=== PATIENT | female | born 1955 | race Caucasian/White ===

== ENCOUNTER 2022-06-25 11:54 | Outpatient (CLI) | payer MEDICARE | END 2022-06-25 11:55 | disposition home or self-care (01) | LOC: BICMAMMO 11:54 | PROVIDERS: ATTEND Registered Nurse Community Health | DX: Z12.31 Encounter for screening mammogram for malignant neoplasm of breast (principal) | CPT/HCPCS: 77063; 77067 ==

== ENCOUNTER 2022-10-03 12:08 | Outpatient (CLI) | payer MEDICARE | END 2022-10-03 12:09 | disposition home or self-care (01) | LOC: BICULT 12:08 | PROVIDERS: ATTEND Internal Medicine Nephrology | DX: N18.30 Chronic kidney disease, stage 3 unspecified (principal); N28.1 Cyst of kidney, acquired; N28.9 Disorder of kidney and ureter, unspecified | CPT/HCPCS: 76770 ==

== ENCOUNTER 2023-05-11 21:36 | Inpatient (IN) | payer MEDICARE ==
[2023-05-12 02:43] VITALS: BMI 46.7
[2023-05-12] MEDS ORDERED: Ipratropium/Albuterol 3 ML NEB NEB PRN (04:31)
[2023-05-12] MEDS ORDERED: Ondansetron ODT 4 MG TAB PO PRN (04:32)
[2023-05-12] MEDS ORDERED: Ondansetron PF 4 MG/2 ML Vial IVP PRN (04:32)
[2023-05-12] MEDS ORDERED: Dextrose 5% in Water 1,000 ML IV PRN (04:32)
[2023-05-12] MEDS ORDERED: Acetaminophen 650 MG Suppository PR PRN (04:32)
[2023-05-12] MEDS ORDERED: HumaLOG 300 UNITS/3 ML VIAL SC PRN ×2 (04:32)
[2023-05-12] MEDS ORDERED: Dextrose 50% Abboject 50 ML SYRINGE SLOW IVP PRN (04:32)
[2023-05-12] MEDS ORDERED: Glucagon 1 MG/ML KIT IM PRN (04:32)
[2023-05-12] MEDS ORDERED: Furosemide 20 MG/2 ML VIAL SLOW IVP SCH (05:15)
[2023-05-12 05:29] LABS: #Monocytes 0.4 thou/uL (0.11-0.59); #Neutrophils 12.3 thou/uL (1.40-6.50); %Basophils 0.2 % (0.0-1.0); %Eosinophils 0.1 % (0.0-10.0); %Lymphocytes 5.1 % (21.0-51.0); %Monocytes 2.6 % (0.0-10.0); %Neutrophils 90.8 % (42.0-75.0); Hematocrit 42.2 % (36.0-47.0); Hemoglobin 13.3 g/dL (12.0-16.0); Mean Corpuscular HGB CONC 31.5 g/dL (32.0-36.0); Mean Corpuscular Hemoglobin 30.4 pg (27.0-31.0); Mean Corpuscular Volume 96.3 fl (78.0-98.0); Mean Platelet Volume 11.9 fL (7.4-10.4); Platelet Count 283 10x3/uL (130-400); RBC Distribution Width 14.4 % (11.5-14.5); Red Blood Cell (RBC) Count 4.38 mill/uL (4.20-5.40); White Blood Cell (WBC) Count 13.6 10x3/uL (4.8-10.8)
[2023-05-12 05:36] LABS: Hemoglobin A1c 6.7 % (4.0-6.0)
[2023-05-12 05:58] LABS: Anion Gap 18 mmol/L (10-20); BUN (Urea Nitrogen) 28 mg/dL (9.8-20.1); Calc. Creatinine Clearance 56 mL/min (70-130); Calcium 9.8 mg/dL (7.8-10.44); Carbon Dioxide 24 mmol/L (23-31); Chloride 102 mmol/L (98-107); Estimated GFR 31; Glucose 265 mg/dL (80-115); Potassium 3.5 mmol/L (3.5-5.1); Sodium 140 mmol/L (136-145)
[2023-05-12 06:09] LABS: Magnesium 1.8 mg/dL (1.6-2.6)
[2023-05-12 06:14] LABS: Troponin I 0.013 ng/mL (< 0.028)
[2023-05-12] MEDS: Ipratropium/Albuterol 3 ML NEB NEB SCH ×5 (06:57→22:42)
[2023-05-12] MEDS: cefTRIAXone\\ROCEPHIN 1 GM in Sodium Chloride 0.9% 100 ML IVPB SCH (07:51)
[2023-05-12] MEDS ORDERED: methylPREDNISolone Sod Succ 40 MG VIAL IVP SCH (09:00)
[2023-05-12] MEDS ORDERED: Mometasone/Formoterol 200/5 60 PUFF INH SCH (15:45)
[2023-05-12] MEDS: Acetaminophen 325 MG TAB PO PRN (16:02)
[2023-05-12] MEDS: methylPREDNISolone Sod Succ 40 MG VIAL IVP SCH ×2 (16:03→21:25)
[2023-05-12] MEDS: traZODone HCl 150 MG TAB PO SCH (21:25)
[2023-05-12] MEDS: busPIRone HCl 10 MG TAB PO SCH (21:25)
[2023-05-13] MEDS: Ipratropium/Albuterol 3 ML NEB NEB SCH ×6 (02:53→22:21)
[2023-05-13 05:44] LABS: #Monocytes 0.5 thou/uL (0.11-0.59); #Neutrophils 12.8 thou/uL (1.40-6.50); %Basophils 0.1 % (0.0-1.0); %Lymphocytes 8.5 % (21.0-51.0); %Monocytes 3.5 % (0.0-10.0); Hematocrit 42.5 % (36.0-47.0); Hemoglobin 13.6 g/dL (12.0-16.0); Mean Corpuscular Hemoglobin 30.9 pg (27.0-31.0); Mean Corpuscular Volume 96.6 fl (78.0-98.0); Mean Platelet Volume 12.2 fL (7.4-10.4); Platelet Count 277 10x3/uL (130-400); RBC Distribution Width 14.6 % (11.5-14.5); White Blood Cell (WBC) Count 14.7 10x3/uL (4.8-10.8)
[2023-05-13] MEDS: Levothyroxine Sodium 25 MCG TAB PO SCH (05:52)
[2023-05-13] MEDS: methylPREDNISolone Sod Succ 40 MG VIAL IVP SCH ×4 (05:52→20:26)
[2023-05-13] MEDS: Acetaminophen 325 MG TAB PO PRN ×2 (05:59→21:08)
[2023-05-13 06:05] LABS: Anion Gap 15 mmol/L (10-20); BUN (Urea Nitrogen) 33 mg/dL (9.8-20.1); Calc. Creatinine Clearance 73 mL/min (70-130); Calcium 10.2 mg/dL (7.8-10.44); Carbon Dioxide 26 mmol/L (23-31); Chloride 104 mmol/L (98-107); Estimated GFR 43; Glucose 185 mg/dL (80-115); Potassium 4.1 mmol/L (3.5-5.1); Sodium 141 mmol/L (136-145)
[2023-05-13] MEDS: Mometasone/Formoterol 200/5 60 PUFF INH SCH ×2 (06:49→18:20)
[2023-05-13] MEDS: cefTRIAXone\\ROCEPHIN 1 GM in Sodium Chloride 0.9% 100 ML IVPB SCH (07:59)
[2023-05-13] MEDS: Terbinafine 250 MG TAB PO SCH (08:02)
[2023-05-13] MEDS: Hydrochlorothiazide 25 MG TAB PO SCH (08:02)
[2023-05-13] MEDS: busPIRone HCl 10 MG TAB PO SCH ×2 (08:02→20:24)
[2023-05-13] MEDS: Meloxicam 15 MG TAB PO SCH (08:03)
[2023-05-13] MEDS: Venlafaxine HCl XR 150 MG CAP PO SCH (08:04)
[2023-05-13] MEDS: Fenofibrate 48 MG TAB PO SCH (08:04)
[2023-05-13] MEDS ORDERED: Furosemide 20 MG/2 ML VIAL SLOW IVP SCH (09:00)
[2023-05-13] MEDS ORDERED: Lurasidone Hcl [Latuda] 120 MG Tablet PO SCH (09:00)
[2023-05-13] MEDS: traZODone HCl 150 MG TAB PO SCH (20:24)
[2023-05-14] MEDS: Ipratropium/Albuterol 3 ML NEB NEB SCH ×6 (02:27→23:36)
[2023-05-14] MEDS: methylPREDNISolone Sod Succ 40 MG VIAL IVP SCH ×4 (04:49→20:37)
[2023-05-14] MEDS: Levothyroxine Sodium 25 MCG TAB PO SCH (04:50)
[2023-05-14 05:49] LABS: #Monocytes 0.9 thou/uL (0.11-0.59); #Neutrophils 12.3 thou/uL (1.40-6.50); %Basophils 0.2 % (0.0-1.0); %Lymphocytes 12.9 % (21.0-51.0); %Monocytes 5.6 % (0.0-10.0); %Neutrophils 80.6 % (42.0-75.0); Hemoglobin 14.3 g/dL (12.0-16.0); Mean Corpuscular HGB CONC 31.8 g/dL (32.0-36.0); Mean Corpuscular Hemoglobin 29.9 pg (27.0-31.0); Mean Corpuscular Volume 93.9 fl (78.0-98.0); Mean Platelet Volume 11.9 fL (7.4-10.4); Platelet Count 303 10x3/uL (130-400); RBC Distribution Width 14.6 % (11.5-14.5); Red Blood Cell (RBC) Count 4.79 mill/uL (4.20-5.40); White Blood Cell (WBC) Count 15.2 10x3/uL (4.8-10.8)
[2023-05-14 06:15] LABS: Anion Gap 12 mmol/L (10-20); BUN (Urea Nitrogen) 37 mg/dL (9.8-20.1); Calc. Creatinine Clearance 85 mL/min (70-130); Calcium 10.5 mg/dL (7.8-10.44); Carbon Dioxide 31 mmol/L (23-31); Chloride 99 mmol/L (98-107); Estimated GFR 51; Glucose 159 mg/dL (80-115); Potassium 3.8 mmol/L (3.5-5.1); Sodium 138 mmol/L (136-145)
[2023-05-14] MEDS: Mometasone/Formoterol 200/5 60 PUFF INH SCH ×2 (06:49→20:23)
[2023-05-14] MEDS: cefTRIAXone\\ROCEPHIN 1 GM in Sodium Chloride 0.9% 100 ML IVPB SCH (08:28)
[2023-05-14] MEDS: Meloxicam 15 MG TAB PO SCH (08:29)
[2023-05-14] MEDS: Fenofibrate 48 MG TAB PO SCH (08:30)
[2023-05-14] MEDS: Terbinafine 250 MG TAB PO SCH (08:30)
[2023-05-14] MEDS: Hydrochlorothiazide 25 MG TAB PO SCH (08:30)
[2023-05-14] MEDS: busPIRone HCl 10 MG TAB PO SCH ×2 (08:30→20:28)
[2023-05-14] MEDS: Acetaminophen 325 MG TAB PO PRN (08:33)
[2023-05-14] MEDS: Venlafaxine HCl XR 150 MG CAP PO SCH (08:33)
[2023-05-14] MEDS: traZODone HCl 150 MG TAB PO SCH (20:29)
[2023-05-15] MEDS: Ipratropium/Albuterol 3 ML NEB NEB SCH ×6 (02:51→23:10)
[2023-05-15] MEDS: methylPREDNISolone Sod Succ 40 MG VIAL IVP SCH ×3 (03:36→20:11)
[2023-05-15] MEDS: Levothyroxine Sodium 25 MCG TAB PO SCH (05:11)
[2023-05-15] MEDS: Mometasone/Formoterol 200/5 60 PUFF INH SCH ×2 (06:49→19:37)
[2023-05-15] MEDS: Venlafaxine HCl XR 150 MG CAP PO SCH (09:14)
[2023-05-15] MEDS: Hydrochlorothiazide 25 MG TAB PO SCH (09:14)
[2023-05-15] MEDS: cefTRIAXone\\ROCEPHIN 1 GM in Sodium Chloride 0.9% 100 ML IVPB SCH (09:14)
[2023-05-15] MEDS: Fenofibrate 48 MG TAB PO SCH (09:15)
[2023-05-15] MEDS: Meloxicam 15 MG TAB PO SCH (09:15)
[2023-05-15] MEDS: Terbinafine 250 MG TAB PO SCH (09:15)
[2023-05-15] MEDS: busPIRone HCl 10 MG TAB PO SCH ×2 (09:15→20:12)
[2023-05-15] MEDS ORDERED: methylPREDNISolone Sod Succ 40 MG VIAL IVP SCH ×2 (10:30)
[2023-05-15] MEDS ORDERED: Cefdinir 300 MG CAP PO SCH ×2 (10:30→11:00)
[2023-05-15] MEDS: traZODone HCl 150 MG TAB PO SCH (20:11)
[2023-05-15] MEDS: Cefdinir 300 MG CAP PO SCH (20:12)
[2023-05-16] MEDS: Levothyroxine Sodium 25 MCG TAB PO SCH (05:04)
[2023-05-16] MEDS: Ipratropium/Albuterol 3 ML NEB NEB SCH ×5 (05:47→18:29)
[2023-05-16] MEDS: Mometasone/Formoterol 200/5 60 PUFF INH SCH ×2 (06:51→18:31)
[2023-05-16] MEDS: Fenofibrate 48 MG TAB PO SCH (08:22)
[2023-05-16] MEDS: busPIRone HCl 10 MG TAB PO SCH ×2 (08:23→19:56)
[2023-05-16] MEDS: Cefdinir 300 MG CAP PO SCH ×2 (08:23→19:56)
[2023-05-16] MEDS: Hydrochlorothiazide 25 MG TAB PO SCH (08:23)
[2023-05-16] MEDS: Meloxicam 15 MG TAB PO SCH (08:24)
[2023-05-16] MEDS: Terbinafine 250 MG TAB PO SCH (08:24)
[2023-05-16] MEDS: methylPREDNISolone Sod Succ 40 MG VIAL IVP SCH ×2 (08:26→19:57)
[2023-05-16] MEDS: Venlafaxine HCl XR 150 MG CAP PO SCH (08:34)
[2023-05-16] MEDS: traZODone HCl 150 MG TAB PO SCH (19:56)
[2023-05-17] MEDS: Ipratropium/Albuterol 3 ML NEB NEB SCH ×2 (01:02→06:38)
[2023-05-17] MEDS: Levothyroxine Sodium 25 MCG TAB PO SCH (05:28)
[2023-05-17] MEDS: Mometasone/Formoterol 200/5 60 PUFF INH SCH (06:41)
[2023-05-17] MEDS ORDERED: metFORMIN 500 MG TAB PO SCH (08:00)
[2023-05-17] MEDS: Hydrochlorothiazide 25 MG TAB PO SCH (08:16)
[2023-05-17] MEDS: Cefdinir 300 MG CAP PO SCH (08:16)
[2023-05-17] MEDS: Terbinafine 250 MG TAB PO SCH (08:16)
[2023-05-17] MEDS: busPIRone HCl 10 MG TAB PO SCH (08:17)
[2023-05-17] MEDS: Venlafaxine HCl XR 150 MG CAP PO SCH (08:17)
[2023-05-17] MEDS: Meloxicam 15 MG TAB PO SCH (08:19)
[2023-05-17] MEDS: Fenofibrate 48 MG TAB PO SCH (08:20)
[2023-05-17] MEDS: methylPREDNISolone Sod Succ 40 MG VIAL IVP SCH (08:20)
[2023-05-17 08:24] VITALS: BP 185/80; TEMP 98.2
[2023-05-17] MEDS ORDERED: Atorvastatin Calcium 40 MG TAB PO SCH (09:00)
== END 2023-05-17 13:15 | disposition home or self-care (01) | DRG 189 ==
LOC: T4-A 05-12 01:37 → OBSVTOIN 05-12 11:23
PROVIDERS: ADMIT Student in an Organized Health Care Education/Training Program; ATTEND Family Medicine
DX: J96.01 Acute respiratory failure with hypoxia (principal); I13.0 Hypertensive heart and chronic kidney disease with heart failure and stage 1 through stage 4 chronic kidney disease, or unspecified chronic kidney disease; J44.1 Chronic obstructive pulmonary disease with (acute) exacerbation; N17.9 Acute kidney failure, unspecified; I50.9 Heart failure, unspecified; D72.829 Elevated white blood cell count, unspecified; I44.7 Left bundle-branch block, unspecified; E78.5 Hyperlipidemia, unspecified; E11.22 Type 2 diabetes mellitus with diabetic chronic kidney disease; N18.9 Chronic kidney disease, unspecified; F17.200 Nicotine dependence, unspecified, uncomplicated; Z90.49 Acquired absence of other specified parts of digestive tract; Z79.84 Long term (current) use of oral hypoglycemic drugs; Z79.899 Other long term (current) drug therapy; Z88.5 Allergy status to narcotic agent
CPT/HCPCS: 36415; 36416; 80048; 83036; 83735; 84484; 85025; 93005; 93010; 93306; 94640; J0696; J1650; J1940; J2920; J3490; J7620